=== PATIENT | female | born 1990 | race African-American/Black ===

== ENCOUNTER → 2019-11-11 14:29 | Outpatient (BNVA) | payer SELFPAY | PROVIDERS: PCP Nurse Practitioner; Referring Provider Emergency Medicine; Visit Provider Specialist | DX: G43.011 Migraine without aura, intractable, with status migrainosus (principal); F19.10 Other psychoactive substance abuse, uncomplicated; F17.210 Nicotine dependence, cigarettes, uncomplicated | CPT/HCPCS: 99204; 99214 ==

== ENCOUNTER 2020-02-14 00:19 | Emergency (ER) | payer SELFPAY ==
[2020-02-14] VITALS (8 sets, daily range): BP systolic 105–129; BP diastolic 65–84; PULSE 72–92; RESP 16–18; TEMP 36.2; O2SAT 96–100; BMI 33.9
--- NOTE | 2020-02-14 00:20 | CTR_ITS ---
PROCEDURE INFORMATION: Exam: CT Head Without Contrast Exam date and time: 02/14/2020 12:23 AM Age: 29 years old Clinical indication: Pain; Altered mental status/memory loss and other: Overdose; Headache; Additional info: Orr/ams TECHNIQUE: Imaging protocol: Computed tomography of the head without contrast. Radiation optimization: All CT scans at this facility use at least one of these dose optimization techniques: automated exposure control; mA and/or kV adjustment per patient size (includes targeted exams where dose is matched to clinical indication); or iterative reconstruction. COMPARISON: CT head wo con* [id number] 06/26/2019 7:31 AM RADIATION DOSE METRICS: Total DLP: 876.47 mGy-cm FINDINGS: Brain: No acute intracranial hemorrhage or mass effect. No definite acute infarct by CT. MRI could be more sensitive/specific for detection, as clinically directed. Ventricles: Ventricle size is normal for age. Bones/joints: No definite acute skull fracture. Sinuses: Included paranasal sinuses are essentially clear. Mastoid air cells: No significant acute finding. CT/CT head wo con* [id number] IMPRESSION: 1. No acute intracranial hemorrhage or mass effect. 2. No definite acute infarct by CT, see above. 3. Other findings discussed above. Radiation Dose CTDIVOL = (mGy): DLP = 876.47 (mGy-cm)
--- NOTE | 2020-02-14 00:20 | XR_ITS ---
WS: [id number] PORTABLE CHEST HISTORY: cough COMPARISON: 09/10/2013 Lungs are clear and well expanded. No pleural effusion or pneumothorax. Cardiac size: Normal. Mediastinum/Aorta: Normal mediastinum. No osseous abnormality seen. XR/XR chest 1V portable [id number] IMPRESSION: Unremarkable portable chest.
[2020-02-14 01:15] LABS: ABG PCO2 46.3 mmHg (35-45); ABG PH Result 7.36 (7.35-7.45); Arterial Blood Gas Hematocrit 42.1 % (37-47); Blood Gas Allen Test Pos; Blood Gas Sample Site Radial, right; Blood Gas Sample Type Arterial; Carboxyhemoglobin 2.7 %THgb (0.4-20.1); HGB O2 Sat 94.6 % (95-100); Ionized Calcium Level - ABG 1.2 mmol/L (1.1-1.4); Methemoglobin 0.9 % (0.4-1.5); Oxygen Saturation ABG 98.2; Potassium Level - ABG 3.9 mmol/L (3.5-5.0); Total Hemoglobin 13.7 g/dL (12-16)
[2020-02-14 01:22] LABS: Basophils # 0.1 10^3/uL (0.0-0.1); Basophils % 0.4 %; Eosinophils # 0.2 10^3/uL (0.0-0.8); Eosinophils % 1.4 %; Hematocrit 42.6 % (37.0-47.0); Hemoglobin 13.6 g/dL (11.5-15.3); Lymphocytes # 1.8 10^3/uL (0.8-4.8); Lymphocytes % 14.6 %; Mean Corpuscular HGB Conc 31.9 g/dL (30.0-36.0); Mean Corpuscular Hemoglobin 28.2 pg (28.0-34.0); Mean Corpuscular Volume 88.4 fL (81-99); Mean Platelet Volume 9.9 fL (7.4-10.4); Monocytes # 0.6 10^3/uL (0.2-0.9); Monocytes % 5.1 %; Neutrophils # 9.8 10^3/uL (1.8-7.7); Neutrophils % 78.2 %; Nucleated Red Blood Cells % 0 %; Platelet Count 372 10^3/cmm (130-400); Red Blood Count 4.82 10^6/uL (4.1-5.3); Red Cell Distribution Width 14.6 % (12.1-15.1); White Blood Count 12.5 10^3/uL (4.0-10.0)
--- NOTE | 2020-02-14 01:23 | ED_ITS ---
HPI - Overdose General: Chief Complaint: Overdose Stated Complaint: OD Time Seen by Provider: 02/14/20 00:20 History of Present Illness: HPI Narrative: Glendy is a 29-year-old female who comes in after overdosing on opiates. She states that she injects metham phetamines and opiates but does not normally use opiates. Tonight she did this and was found to not be breathing. She was believed to have bystander CPR and EMS was called. EMS gave her 2 mg of intranasal Narcan with minimal response. They established an IO and gave her 1 mg of intraosseous Narcan with good result. Here the patient has a GCS of 15. The patient states she did this to get high and she did not do this in an effort to hurt or kill herself. EMS reports the same story. Review of Systems General: Reports: other (negative unless marked) Const: Denies: fever, chills, body aches, fatigue, malaise or diaphoresis Eyes: Denies: change in vision or blurry vision ENMT: Denies: throat pain, painful swallowing, hoarseness, ear pain, ear discharge, Change in hearing or nasal discharge Card: Denies: chest pain, palpitations, irregular heart rhythm, syncope, pre- syncope, shortness of breath on exertion or shortness of breath when lying down Resp: Denies: shortness of breath, productive cough, non-productive cough, wheezing, coughing up blood or chest congestion GI: Denies: abdominal pain, nausea, vomiting, vomiting blood, coffee grounds in vomit, diarrhea, constipation, cramping, blood in stool or black tarry stool : Denies: flank pain, painful urination, urinary frequency, urinary urgency, decreased urine ouput, urinary incontinence or blood in urine Musc: Denies: neck pain, back pain, extremity pain, extremity swelling, joint pain, joint swelling, joint warmth or joint stiffness Skin/Breast: Denies: rash, skin tenderness or yellow skin Neuro: Denies: headache, numbness in extremities, weakness in extremities, changes in sensation, lack of coordination, difficulty walking, dizziness, vertigo or confusion Endo: Denies: excessive thirst, tired all the time, cold intolerance, excessive sweating, flushing or hot flashes Wood/Lymph: Denies: easy bruising, easy bleeding, petechiae or enlarged lymph nodes All/Imm: Denies: hives, throat swelling, tongue swelling, facial swelling or acute wheezing PFSH ED PFSH: Medical History Cardiac murmur Post traumatic stress disorder Surgical History History of laparoscopic cholecystectomy History of partial hysterectomy History of tonsillectomy and adenoidectomy History of tubal ligation Family History Other Cancer Diabetes Stroke Denies family history of CAD (coronary artery disease) Social History Smoking and tobacco status: current every day smoker cigarettes Packs smoked per day: 1 Years cigarettes smoked: 16 Alcohol intake: current Alcohol intake frequency: holidays/special occasions on ly Alcohol type: beer and wine Physical Exam Const: COMMON NORMALS: no apparent distress, oriented x3, no limitations, healthy appearing and well nourished EXAM LIMITATIONS: no altered mental status GENERAL APPEARANCE: cooperative, well kempt and well developed ORIENTATION/CONSCIOUSNESS: Yes awake HENMT: COMMON NORMALS: normocephalic, head/scalp atraumatic, hearing grossly normal bilaterally, external ears normal, EAC's normal, external nose normal and moist oral mucous membranes HEAD & SCALP: normal to inspection, normocephalic and atraumatic FACE & SINUS: normal facial exam and face symmetric NOSE: external nose normal and nares normal EXTERNAL EAR: Yes external ears normal EXTERNAL AUDITORY CANAL: EAC's normal MOUTH: oral and palatal mucosa normal and tongue normal Eye: COMMON NORMALS: PERRL, EOMs intact bilaterally, conjunctivae normal and no scleral icterus GENERAL EYE: normal appearance of both eyes and normal light reflex CONJUNCTIVA: Yes conjunctivae normal SCLERA: sclerae normal CORNEA: Yes corneas normal PUPIL: Yes PERRL DIRECT OPHTHALMOSCOPY: Yes normal light reflex Neck/C-Spine: COMMON NORMALS: full ROM, no lymphadenopathy, supple, no meningeal signs and no JVD GENERAL: Yes normal visual inspection and Yes trachea midline CERVICAL SPINE: Yes cervical ROM normal Chest: COMMONS NORMALS: inspection of chest normal and palpation of chest normal Resp: COMMON NORMALS: normal respiratory effort, no retractions, no use of accessory muscles and clear to auscultation bilaterally EFFORT & INSPECTION: Yes able to speak in complete sentences AUSCULTATION: clear to auscultation bilaterally Cardio: COMMON NORMALS: no JVD, regular rate, regular rhythm, S1 normal heart sound, S2 normal heart sound, no gallops, no clicks, no murmurs and no rub JUGULAR VENOUS DISTENTION: no JVD RATE: regular rate RHYTHM: regular rhythm HEART SOUNDS: S1 normal and S2 normal GI: COMMON NORMALS: soft to palpation, non-tender, no hepatosplenomegaly and no masses INSPECTION: Yes normal to inspection PALPATION: Yes soft and Yes no hepatosplenomegaly : COMMON NORMALS: Yes no CVA tenderness BLADDER/KIDNEY EXAM: Yes no CVA tenderness Back/Pelvis: COMMON NORMALS: no CVA tenderness, thoracic and lumbar spine normal to inspection, no thoracic nor lumbar tenderness and thoraco-lumbar ROM normal Extremity: COMMON NORMALS: normal to inspection, full ROM, normal capillary refill, no joint enlargement, no clubbing, cyanosis or edema and no calf te nderness Neuro: COMMON NORMALS: oriented x3, CN's II-XII intact bilaterally, moves all extremities, no focal motor deficits and no sensory deficits noted MENINGEAL SIGNS: Yes no meningeal signs Psych: COMMON NORMALS: mental status grossly normal, thought process normal, cooperative, affect normal, speech normal and activity/motor behavior normal APPEARANCE: Yes well kempt SPEECH: Yes normal speech THOUGHT PROCESS: normal thought process Skin: COMMON NORMALS: no rashes or lesions noted, skin turgor normal, no jaundice, no petechiae and no mottling GENERAL SKIN EXAM: no rashes or lesions noted and turgor normal Course ED course: 0300 -nursing has been unable to establish an IV. Blood has been obtained but the patient continues to just have an intraosseous line. I have discussed with her the need for admission as she has received CPR and should be observed as it is unclear what she injected tonight was. It is possible it was a longer acting opiate and not just fentanyl. The patient has been alert and oriented x3 since arrival and that is unchanged. Because they are unable to establish an IV and I feel she should be admitted I informed the patient we will need to place a central line but she refuses. She understands the risks of leaving AGAINST MEDICAL ADVICE including ultimately or severe permanent disability but she refuses. At this time the patient clearly has the capacity to make that decision she shows no sign of impairment and has asked questions in regards to the process including placing a line as well as admission but after having all these questions answered and thinking over this she refuses and wants to be discharged. After much encouragement by me she does agree to at least allow us to follow-up on the remaining CTs and lab work but ultimately she says she will not stay and wants to be discharged. She adamantly refuses a central line. Vital Signs: Vital signs: Vital Signs Temperature 97.2 F L 02/14/20 00:25 Pulse Rate 74 02/14/20 03:52 Respiratory Rate 16 02/14/20 03:52 Blood Pressure 117/65 02/14/20 03:52 Pulse Oximetry 97 02/14/20 03:52 MDM - Overdose MDM Narrative: Medical decision making narrative: 5178 -the patient is refusing a repeat IV stick to check a troponin but she denies having any chest pain currently. She states that she does not normally use opiates and she used opiates tonight as she believes that is what made her stop breathing. She got Narcan by EMS which has long since worn off and she is remained hemodynamically stable with good blood pressures and a normal pulse oximetry and a normal respiratory rate without any further doses of Narcan or need for supplemental O2. CT scans did not show any evidence of injury. Patient's mentation is good. I have still informed her I think it is better if she stayed but she is refusing. I have made her aware that if she leaves without further observation she is at risk of or severe permanent disability but despite my warnings she refuses. I do think she is likely safe for discharge did not think that there are any long-acting opiates that would cause a further respiratory depression as at this time the Narcan should have worn off so the patient should be okay. The patient will wait here at the hospital in her room until her mother comes to pick her up that is who she is having us call to the pick her up. Patient understands she is welcome to return or she can change her mind while she is waiting here if she would like further observation and care. When asked again the patient does state that she did not do this to hurt herself she only did this to get high. The patient is used multiple drugs over the past several years for the same reasons, to get high. Lab Data: Attestation: I reviewed the patient's lab results. Labs: Lab Results 02/14/20 02/14/20 02/14/20 Range/Units 01:10 01:10 02:56 WBC 12.5 H (4.0-10.0) 10^3/ uL RBC 4.82 (4.1-5.3) 10^6/u L Hgb 13.6 (11.5-15.3) g/dL Hct 42.6 (37.0-47.0) % MCV 88.4 (81-99) fL MCH 28.2 (28.0-34.0) pg MCHC 31.9 (30.0-36.0) g/dL RDW 14.6 (12.1-15.1) % Plt Count 372 (130-400) 10^3/c mm MPV 9.9 (7.4-10.4) fL Neut % (Auto) 78.2 % Lymph % (Auto) 14.6 % [place] % (Auto) 5.1 % Eos % (Auto) 1.4 % Baso % (Auto) 0.4 % Neut # (Auto) 9.8 H (1.8-7.7) 10^3/u L Lymph # (Auto) 1.8 (0.8-4.8) 10^3/u L [place] # (Auto) 0.6 (0.2-0.9) 10^3/u L Eos # (Auto) 0.2 (0.0-0.8) 10^3/u L Baso # (Auto) 0.1 (0.0-0.1) 10^3/u L Nucleated RBC % (a uto) 0 % Nucleated RBCs # 0.0 /100WBC Specimen Type Arterial Sample Site Radial, right ABG pH 7.36 (7.35-7.45) ABG pCO2 46.3 H (35-45) mmHg ABG pO2 102.0 H (80.0-100.0) mmH g ABG HCO3 26.0 (22-26) mmol/L ABG O2 Saturation 98.2 ABG Base Excess 0.0 (-2.0-2.0) mmol/ L Derek Test Pos Hematocrit 42.1 (37-47) % Hgb O2 Saturation 94.6 L (95-100) % Carboxyhemoglobin 2.7 (0.4-20.1) %THgb Methemoglobin 0.9 (0.4-1.5) % Total Hemoglobin 13.7 (12-16) g/dL Sodium 142.0 138 (131-143) mmol/L Potassium 3.9 4.2 (3.5-5.0) mmol/L Glucose 113.0 111 (70-115) mg/dL Ionized Calcium 1.2 (1.1-1.4) mmol/L O2 Delivery Device None FiO2 21.0 % Parts Processor ID [email or web address] Chloride 104 (98-107) mmol/L Carbon Dioxide 22 (22-29) mmol/L Anion Gap 16.2 (5-19) BUN 9 (6-20) mg/dL Creatinine 0.7 (0.5-0.9) mg/dL GFR Calculation 118.9 (90-130) mL/min Calculated Osmolal ity 283 L (285-295) mOsm/k g Calcium 9.6 (8.5-10.5) mg/dL Magnesium 2.3 (1.7-2.3) mg/dL Total Bilirubin 0.2 (0.15-1.2) mg/dL AST 30 (0-32) U/L ALT 47 H (0-33) U/L Alkaline Phosphata se 73 (35-105) IU/L Creatine Kinase 412 H* (26-192) U/L Troponin T Baselin e (0-10) ng/mL Total Protein 7.6 (6.6-8.7) g/dL Albumin 3.9 (3.5-5.2) g/dL Globulin 3.7 (1.3-4.6) g/dL Salicylates < 0.3 L (3-10) mg/dL Urine Opiates Scre en (Negative) ng/mL Acetaminophen < 5.0 L (10-30) ug/mL Ur Barbiturates Sc reen (Negative) ng/mL Phenytoin 0.8 L (10-20) ug/mL Valproic Acid 2.8 L (50-100) mcg/mL Carbamazepine 2.0 L (4.0-12.0) ug/mL Ur Phencyclidine S crn (Negative) ng/mL Ur Amphetamines Sc reen (Negative) ng/mL U Benzodiazepines Scrn (Negative) ng/mL [place] (0.6-1.2) mmol/L Urine Cocaine Scre en (Negative) ng/mL U Marijuana (THC) Screen (Negative) ng/mL Ethyl Alcohol < 10 (0-10) mg/dL 02/14/20 02/14/20 02/14/20 Range/Units 02:56 02:56 03:50 WBC (4.0-10.0) 10^3/ uL RBC (4.1-5.3) 10^6/u L Hgb (11.5-15.3) g/dL Hct (37.0-47.0) % MCV (81-99) fL MCH (28.0-34.0) pg MCHC (30.0-36.0) g/dL RDW (12.1-15.1) % Plt Count (130-400) 10^3/c mm MPV (7.4-10.4) fL Neut % (Auto) % Lymph % (Auto) % [place] % (Auto) % Eos % (Auto) % Baso % (Auto) % Neut # (Auto) (1.8-7.7) 10^3/u L Lymph # (Auto) (0.8-4.8) 10^3/u L [place] # (Auto) (0.2-0.9) 10^3/u L Eos # (Auto) (0.0-0.8) 10^3/u L Baso # (Auto) (0.0-0.1) 10^3/u L Nucleated RBC % (a uto) % Nucleated RBCs # /100WBC Specimen Type Sample Site ABG pH (7.35-7.45) ABG pCO2 (35-45) mmHg ABG pO2 (80.0-100.0) mmH g ABG HCO3 (22-26) mmol/L ABG O2 Saturation ABG Base Excess (-2.0-2.0) mmol/ L Derek Test Hematocrit (37-47) % Hgb O2 Saturation (95-100) % Carboxyhemoglobin (0.4-20.1) %THgb Methemoglobin (0.4-1.5) % Total Hemoglobin (12-16) g/dL Sodium (131-143) mmol/L Potassium (3.5-5.0) mmol/L Glucose (70-115) mg/dL Ionized Calcium (1.1-1.4) mmol/L O2 Delivery Device FiO2 % Parts Processor ID Chloride (98-107) mmol/L Carbon Dioxide (22-29) mmol/L Anion Gap (5-19) BUN (6-20) mg/dL Creatinine (0.5-0.9) mg/dL GFR Calculation (90-130) mL/min Calculated Osmolal ity (285-295) mOsm/k g Calcium (8.5-10.5) mg/dL Magnesium (1.7-2.3) mg/dL Total Bilirubin (0.15-1.2) mg/dL AST (0-32) U/L ALT (0-33) U/L Alkaline Phosphata se (35-105) IU/L Creatine Kinase (26-192) U/L Troponin T Baselin e 16 H (0-10) ng/mL Total Protein (6.6-8.7) g/dL Albumin (3.5-5.2) g/dL Globulin (1.3-4.6) g/dL Salicylates (3-10) mg/dL Urine Opiates Scre en Negative (Negative) ng/mL Acetaminophen (10-30) ug/mL Ur Barbiturates Sc reen Negative (Negative) ng/mL Phenytoin (10-20) ug/mL Valproic Acid (50-100) mcg/mL Carbamazepine (4.0-12.0) ug/mL Ur Phencyclidine S crn Negative (Negative) ng/mL Ur Amphetamines Sc reen Positive H (Negative) ng/mL U Benzodiazepines Scrn Positive H (Negative) ng/mL [place] 0.1 L (0.6-1.2) mmol/L Urine Cocaine Scre en Negative (Negative) ng/mL U Marijuana (THC) Screen Negative (Negative) ng/mL Ethyl Alcohol (0-10) mg/dL Imaging Data^: CT Head: Radiologist's impression: [address] [address] [address] Scan Report Signed Patient: Leta Puentes Unit #: [id number] : 09/28/1973 Age/Sex: 46 / F ADM Date: 02/13/20 Loc: ER Room/Bed: Attending Dr: Ordering Provider/Ordering MD: Maxine Brady DO Date of Service: 02/13/20 Procedure(s): CT head wo con* [id number] Accession Number(s): [id number] Report Number: [id number] PROCEDURE INFORMATION: Exam: CT Head Without Contrast Exam date and time: 02/13/2020 9:06 PM Age: 46 years old Clinical indication: Pain; Altered mental status/memory loss; Headache; Additional info: Orr/ams TECHNIQUE: Imaging protocol: Computed tomography of the head without contrast. Radiation optimization: All CT scans at this facility use at least one of these dose optimization techniques: automated exposure control; mA and/or kV adjustment per patient size (includes targeted exams where dose is matched to clinical indication); or iterative reconstruction. COMPARISON: CT head wo con* [id number] 12/31/2019 9:57 PM RADIATION DOSE METRICS: Total DLP: 840.72 mGy-cm FINDINGS: Brain: No acute intracranial hemorrhage or mass effect. There is decreased attenuation in the periventricular white matter, likely from microvascular disease. There are old lacunar infarcts in the basal ganglia/internal capsule regions bilaterally, similar to prior exam. Additional old infarcts in the amy bilaterally, larger on the left. No definite acute infarct by CT. MRI could be more sensitive/specific for detection, as clinically directed. Ventricles: Ventricle size is normal for age. Bones/joints: No definite acute skull fracture. Sinuses: Included paranasal sinuses are essentially clear. Mastoid air cells: No significant acute finding. CT/CT head wo con* [id number] IMPRESSION: 1. No acute intracranial hemorrhage or mass effect. 2. Changes of microvascular disease, and old lacunar infarcts. 3. No definite acute infarct by CT, see above. 4. Other findings discussed above. Radiation Dose CTDIVOL = (mGy): DLP = 840.72 (mGy-cm) Dictated By: Sarabjit Abarca MD Signed By: Sarabjit Abarca MD Signed Date/Time: 02/14/209 DD/ 000 CXR: My impression: No acute cardiopulmonary findings. CT Chest/ABD/Pelvis : Radiologist's impression: [address] [place] [address] CT Scan Report Signed Patient: Glendy Gardner Unit #: [id number] : 1990 Age/Sex: 29 / F ADM Date: 02/14/20 Loc: ER Room/Bed: Attending Dr: Ordering Provider/Ordering MD: Maxine Brady DO Date of Service: 02/14/20 Procedure(s): CT chest abd pel wo con Accession Number(s): [id number] Report Number: [id number] PROCEDURE INFORMATION: Exam: CT Chest Without Contrast Exam date and time: 02/14/2020 3:03 AM Age: 29 years old Clinical indication: Abdominal pain; Generalized; Chest pain; Prior surgery; Surgery type: Hysterectomy, cholecystectomy, btl TECHNIQUE: Imaging protocol: Computed tomography of the chest without contrast. Radiation optimization: All CT scans at this facility use at least one of these dose optimization techniques: automated exposure control; mA and/or kV adjustment per patient size (includes targeted exams where dose is matched to clinical indication); or iterative reconstruction. COMPARISON: No relevant prior studies available. RADIATION DOSE METRICS: Total DLP: 2497.16 mGy-cm FINDINGS: Lungs: Very mild probable atelectasis in the posterior lower lungs. Lungs otherwise appear essentially clear. Pleural space: No pleural fluid. Heart: No significant pericardial effusion. Mediastinum: No evidence for pneumomediastinum or pneumothorax. Aorta: No evidence of focal thoracic aortic aneurysm. Lymph nodes: No significant hilar or mediastinal lymphadenopathy. Bones/joints: No significant acute abnormality. Soft tissues: No significant acute abnormality. IMPRESSION: 1. Very mild probable atelectasis in the posterior lower lungs. 2. No pleural fluid. 3. Other findings discussed above. PROCEDURE INFORMATION: Exam: CT Abdomen And Pelvis Without Contrast Exam date and time: 02/14/2020 3:03 AM Age: 29 years old Clinical indication: Abdominal pain; Generalized; Chest pain; Prior surgery; Surgery type: Hysterectomy, cholecystectomy, btl TECHNIQUE: Imaging protocol: Computed tomography of the abdomen and pelvis without contrast. Radiation optimization: All CT scans at this facility use at least one of these dose optimization techniques: automated exposure control; mA and/or kV adjustment per patient size (includes targeted exams where dose is matched to clinical indication); or iterative reconstruction. COMPARISON: No relevant prior studies available. RADIATION DOSE METRICS: Total DLP: 2497.16 mGy-cm FINDINGS: Liver: Unremarkable. Gallbladder and bile ducts: Prior cholecystectomy, no significant biliary tree dilation. Pancreas: Unremarkable. Spleen: Unremarkable. Adrenals: Unremarkable. Kidneys and ureters: No hydronephrosis of either kidney. No visible renal or ureteral calculus. No perinephric fluid. Stomach and bowel: There are no CT findings to strongly suggest diverticulitis. Appendix: The appendix is visualized and appears normal. Intraperitoneal space: No free air, ascites, or bowel distention. Vasculature: No evidence for abdominal aortic aneurysm. Lymph nodes: No retroperitoneal adenopathy. Bladder: Unremarkable as visualized. Reproductive: Prior hysterectomy. No definite ovarian/adnexal cyst or mass by CT. Bones/joints: No significant acute finding. Soft tissues: Very small umbilical hernia, containing only fat. CT/CT chest abd pel wo con IMPRESSION: 1. Normal appendix. 2. No free air or bowel distention. 3. No hydronephrosis of either kidney. No visible renal or ureteral calculus. 4. Other findings discussed above. Radiation Dose CTDIVOL = (mGy): DLP = 2497.16 2497.16 (mGy-cm) Dictated By: Sarabjit Abarca MD Signed By: Sarabjit Abarca MD Signed Date/Time: 02/14/200 DD/ EKG Data^: EKG 1: Attestation: I personally reviewed and interpreted this EKG as follows: EKG interpretation date: 02/14/20 EKG interpretation time: 01:17 Interpretation: Normal sinus rhythm at 90 beats a minute, incomplete right bundle branch block, no other acute ST or T wave changes. EKG 2: Attestation: I personally reviewed and interpreted this EKG as follows: EKG interpretation date: 02/14/20 EKG interpretation time: 03:35 Interpretation: Sinus rhythm at 73 beats a minute, left axis deviation, nonspecific ST and T wave changes. Discharge Plan Discharge Patient Disposition: Left Against Medical Advice Clinical Impression: Polysubstance abuse Drug overdose Qualifiers: Encounter type: initial encounter Injury intent: accidental or unintentional Qualified Code(s): T50.901A - Poisoning by unspecified drugs, medicaments and biological substances, accidental (unintentional), initial encounter Condition: Stable Prescriptions: No Action ibuprofen 200 mg capsule 400 mg PO Q8H RF: 0 venlafaxine [Effexor XR] 75 mg capsule,extended release 24hr 75 mg PO QAM Qty: 7 RF: 0 venlafaxine [Effexor XR] 150 mg capsule,extended release 24hr 150 mg PO QAM Qty: 30 RF: 4 Discharge Orders: Discharge Order (Routine); Ordered 02/14/20 Ordered By: Maxine Brady Referrals: Travis Benton MD [Physician] - 1-3 days Discharge Diet: Advance as tolerated Discharge Activity: Increase activity as tolerated Patient Instructions: Benzodiazepine Abuse (ED), Narcotic Abuse (ED), Methamphetamine Abuse (ED), Polysubstance Abuse (ED) Activity Restrictions/Additional Instructions: You're leaving AGAINST MEDICAL ADVICE and are at risk for or severe permanent disability by doing so. You are more than welcome to return at any time for recheck and for further evaluation and care suture change you change your mind. You are free to return at any time should you change your mind or your symptoms change and you want further care. Be certain to follow-up with your doctor and do not use any drugs at all as you could have the same reaction as you had with this episode. God bless you and if you ever need help the ER is always here for you. Stand Alone Forms: Against Medical Advice Coding Level of Care Code ED Information Systems Project Manager for [employer] Exam Comprehensive
--- NOTE | 2020-02-14 02:21 | ECG_ITS ---
Measurements Intervals [place] Rate: 73 P: -5 [place]: 154 QRS: -41 QRSD: 104 T: -31 QT: 372 QTc: 412 SINUS RHYTHM WITH OCCASIONAL SUPRAVENTRICULAR PREMATURE COMPLEXES LEFT AXIS DEVIATION [QRS AXIS < -30] Compared to ECG 01/28/2019 08:47:34 Left-axis deviation now present Electronically Signed On 02-14-2020 15:52:28 CDT by Laura Leblanc M.D. [email or web address]
--- NOTE | 2020-02-14 03:03 | CTR_ITS ---
PROCEDURE INFORMATION: Exam: CT Chest Without Contrast Exam date and time: 02/14/2020 3:03 AM Age: 29 years old Clinical indication: Abdominal pain; Generalized; Chest pain; Prior surgery; Surgery type: Hysterectomy, cholecystectomy, btl TECHNIQUE: Imaging protocol: Computed tomography of the chest without contrast. Radiation optimization: All CT scans at this facility use at least one of these dose optimization techniques: automated exposure control; mA and/or kV adjustment per patient size (includes targeted exams where dose is matched to clinical indication); or iterative reconstruction. COMPARISON: No relevant prior studies available. RADIATION DOSE METRICS: Total DLP: 2497.16 mGy-cm FINDINGS: Lungs: Very mild probable atelectasis in the posterior lower lungs. Lungs otherwise appear essentially clear. Pleural space: No pleural fluid. Heart: No significant pericardial effusion. Mediastinum: No evidence for pneumomediastinum or pneumothorax. Aorta: No evidence of focal thoracic aortic aneurysm. Lymph nodes: No significant hilar or mediastinal lymphadenopathy. Bones/joints: No significant acute abnormality. Soft tissues: No significant acute abnormality. IMPRESSION: 1. Very mild probable atelectasis in the posterior lower lungs. 2. No pleural fluid. 3. Other findings discussed above. PROCEDURE INFORMATION: Exam: CT Abdomen And Pelvis Without Contrast Exam date and time: 02/14/2020 3:03 AM Age: 29 years old Clinical indication: Abdominal pain; Generalized; Chest pain; Prior surgery; Surgery type: Hysterectomy, cholecystectomy, btl TECHNIQUE: Imaging protocol: Computed tomography of the abdomen and pelvis without contrast. Radiation optimization: All CT scans at this facility use at least one of these dose optimization techniques: automated exposure control; mA and/or kV adjustment per patient size (includes targeted exams where dose is matched to clinical indication); or iterative reconstruction. COMPARISON: No relevant prior studies available. RADIATION DOSE METRICS: Total DLP: 2497.16 mGy-cm FINDINGS: Liver: Unremarkable. Gallbladder and bile ducts: Prior cholecystectomy, no significant biliary tree dilation. Pancreas: Unremarkable. Spleen: Unremarkable. Adrenals: Unremarkable. Kidneys and ureters: No hydronephrosis of either kidney. No visible renal or ureteral calculus. No perinephric fluid. Stomach and bowel: There are no CT findings to strongly suggest diverticulitis. Appendix: The appendix is visualized and appears normal. Intraperitoneal space: No free air, ascites, or bowel distention. Vasculature: No evidence for abdominal aortic aneurysm. Lymph nodes: No retroperitoneal adenopathy. Bladder: Unremarkable as visualized. Reproductive: Prior hysterectomy. No definite ovarian/adnexal cyst or mass by CT. Bones/joints: No significant acute finding. Soft tissues: Very small umbilical hernia, containing only fat. CT/CT chest abd pel wo con IMPRESSION: 1. Normal appendix. 2. No free air or bowel distention. 3. No hydronephrosis of either kidney. No visible renal or ureteral calculus. 4. Other findings discussed above. Radiation Dose CTDIVOL = (mGy): DLP = 2497.16~2497.16 (mGy-cm)
--- NOTE | 2020-02-14 03:03 | PC.NURSE ---
Went in with Dr. Brady to do a consent for Central Line placement after several failed attempts at IV access. Patient stated that she did not want a central line and stated to Dr. Brady to check everything that he can without a central line and when her mom gets here she would like to go home rather than be admitted to the hospital.
--- NOTE | 2020-02-14 03:08 | PC.NURSE ---
Pt refuses urine catheter and refuses central line at this time.
[2020-02-14 03:18] LABS: Alanine Aminotransferase 47 U/L (0-33); Albumin Level 3.9 g/dL (3.5-5.2); Alkaline Phosphatase 73 IU/L (35-105); Anion Gap 16.2 (5-19); Aspartate Amino Transferase 30 U/L (0-32); Blood Urea Nitrogen 9 mg/dL (6-20); Calcium 9.6 mg/dL (8.5-10.5); Carbon Dioxide 22 mmol/L (22-29); Chloride 104 mmol/L (98-107); Globulin 3.7 g/dL (1.3-4.6); Glomerular Filtration Rate 118.9 mL/min (90-130); Glucose 111 mg/dL (65-115); Magnesium 2.3 mg/dL (1.7-2.3); Osmolality Calculated 283 mOsm/kg (285-295); Phenytoin Dilantin 0.8 ug/mL (10-20); Potassium 4.2 mmol/L (3.5-5.1); Sodium 138 mmol/L (136-145); Total Bilirubin 0.2 mg/dL (0.15-1.2); Total Protein 7.6 g/dL (6.6-8.7); Valproic Acid Level 2.8 mcg/mL (50-100)
[2020-02-14 03:19] LABS: Troponin(5th) Baseline 16 ng/mL (0-10)
[2020-02-14 03:24] LABS: Acetaminophen < 5.0 ug/mL (10-30); Alcohol Level < 10 mg/dL (0-10); Salicylate < 0.3 mg/dL (3-10)
[2020-02-14 03:25] LABS: Creatine Phosphokinase 412 U/L (26-192)
[2020-02-14 03:27] LABS: Lithium 0.1 mmol/L (0.6-1.2)
--- NOTE | 2020-02-14 04:07 | PC.NURSE ---
Pt refuses second troponin draw.
[2020-02-14 04:20] LABS: Amphetamines Screen Urine Positive (Negative); Barbiturates Screen Urine Negative (Negative); Benzodiazepines Screen Urine Positive (Negative); Cocaine Screen Urine Negative (Negative); Opiate Screen Urine Negative (Negative); PCP Screen Urine Negative (Negative); THC Screen Urine Negative (Negative)
--- NOTE | 2020-02-14 06:21 | ECG_ITS ---
Measurements Intervals [place] Rate: 90 P: 56 [place]: 190 QRS: 25 QRSD: 100 T: 43 QT: 356 QTc: 436 SINUS RHYTHM Compared to ECG 01/28/2019 08:47:34 No significant changes Electronically Signed On 02-14-2020 15:54:53 CDT by Laura Leblanc M.D. [email or web address]
== END 2020-02-14 06:43 | disposition left against medical advice (07) ==
PROVIDERS: Emergency Provider Emergency Medicine
DX: T65.91XA Toxic effect of unspecified substance, accidental (unintentional), initial encounter (principal); F19.10 Other psychoactive substance abuse, uncomplicated; Z53.21 Procedure and treatment not carried out due to patient leaving prior to being seen by health care provider; F17.210 Nicotine dependence, cigarettes, uncomplicated
CPT/HCPCS: 12345; 36415; 36600; 70450; 71045; 71250; 74176; 80051; 80053; 80156; 80164; 80178; 80185; 80306; 80307; 82550; 82810; 83735; 83986; 84484; 85025; 93005; 96361; 96374; 99283; 99284

== ENCOUNTER 2020-10-03 23:41 | Emergency (ER) | payer SELFPAY ==
[2020-10-03 23:46] VITALS: BP 151/87; PULSE 115; RESP 20; TEMP 36.6; O2SAT 100; BMI 39.1
--- NOTE | 2020-10-03 23:49 | ED_ITS ---
HPI - Nausea/Vomiting/Diarrhea General: Chief complaint: Nausea/Vomiting/Diarrhea Stated complaint: N/V Time Seen by Provider: 10/03/20 23:44 History of Present Illness: HPI Narrative: Patient comes in complain about nausea and vomiting last couple days. Denies any fever or other related problems. Has no diarrhea. No cough congestion lost taste or smell. Is a daily pot smoker. 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 Denies abdominal pain. MD elicited complaint: nausea and vomiting Pertinent past history: cyclical vomiting Onset (ago): day(s) Associated nausea: Yes Associated abdominal pain: No Associated symtoms: Reports no associated symptoms and nausea; Denies anxiety, change in vision, chest pain or headache(s) Review of Systems Const: Denies: fever(s), chills or body aches Eyes: Denies: change in vision or blurry vision ENMT: Denies: throat pain or nasal congestion Card: Denies: chest pain or dyspnea on exertion Resp: Denies: dyspnea, productive cough or non-productive cough GI: Reports: nausea and vomiting; Denies: abdominal pain Musc: Denies: extremity pain Skin/Breast: Denies: rash Neuro: Denies: headache(s) Psych: Denies: anxiety or depression Wood/Lymph: Denies: easy bruising PFSH ED PFSH: Medical History (Updated 08/19/20 @ 09:41 by Flash Radford MD) Cardiac murmur External otitis of right ear Left otitis media Morbid obesity with BMI of 40.0-44.9, adult Post traumatic stress disorder URI (upper respiratory infection) Surgical History History of laparoscopic cholecystectomy History of partial hysterectomy History of tonsillectomy and adenoidectomy History of tubal ligation Family History Other Cancer Diabetes Stroke Denies family history of CAD (coronary artery disease) Social History Smoking and tobacco status: current every day smoker cigarettes Packs smoked per day: 1 Years cigarettes smoked: 16 Alcohol intake: current Alcohol intake frequency: holidays/special occasions only Alcohol type: beer and wine Physical Exam Const: COMMON NORMALS: no acute distress, average body habitus and patient oriented x3 HENMT: COMMON NORMALS: normocephalic HEAD & SCALP: normal to inspection and normocephalic FACE & SINUS: normal facial exam Eye: COMMON NORMALS: conjunctivae normal GENERAL EYE: appearance normal, both eyes and all related structures CONJUNCTIVA: Yes conjunctivae normal Neck/C-Spine: COMMON NORMALS: no JVD Chest: COMMONS NORMALS: normal inspection of the chest Resp: COMMON NORMALS: normal respiratory effort and clear to auscultation bilaterally AUSCULTATION: clear to auscultation bilaterally Cardio: COMMON NORMALS: no JVD and regular rhythm RATE: tachycardic RHYTHM: regular rhythm GI: COMMON NORMALS: Normal to inspection, nondistended, normoactive bowel sounds present Extremity: COMMON NORMALS: normal to inspection and full ROM Neuro: COMMON NORMALS: patient oriented x3 Course Vital Signs: Vital signs: Vital Signs Temperature 97.8 F 10/03/20 23:46 Pulse Rate 115 H 10/03/20 23:46 Respiratory Rate 20 H 10/03/20 23:46 Blood Pressure 151/87 10/03/20 23:46 Pulse Oximetry 100 10/03/20 23:46 MDM - Nausea/Vomiting/Diarrhea MDM Narrative: Medical decision making narrative: Patient left before any test could be completed Discharge Plan Discharge Patient Disposition: Left Without Being Seen Coding Level of Care Code ED It [employer] And Assurance Manager for [facility] F[facility] Exam Comprehensive
== END 2020-10-03 23:50 | disposition left against medical advice (07) ==
LOC: ER 23:50
PROVIDERS: Emergency Provider Nurse Practitioner Family
DX: R11.2 Nausea with vomiting, unspecified (principal); Z53.21 Procedure and treatment not carried out due to patient leaving prior to being seen by health care provider; F17.210 Nicotine dependence, cigarettes, uncomplicated
CPT/HCPCS: 12345; 99281

== ENCOUNTER 2020-10-11 17:29 | Emergency (ER) | payer SELFPAY ==
[2020-10-11 17:44] VITALS: BP 146/73; PULSE 88; RESP 14; TEMP 36.5; O2SAT 98; BMI 38.5
--- NOTE | 2020-10-11 17:51 | ED_ITS ---
HPI - Female Genitourinary General: Chief complaint: Abdominal Pain Stated complaint: BLOOD IN URINE, SENT FROM Time Seen by Provider: 10/11/20 17:48 History of Present Illness: HPI Narrative: Patient is a 30-year-old female comes to the ED with right flank pain blood in her urine. Patient was seen at urgent care earlier today and was sent over here to the ED to evaluate for possible kidney stone. Patient says she has had some right flank pain urine fr equency for the past 2 days. Patient also has had some thick white vaginal discharge, but no vaginal bleeding. She denies any vaginal lesions or sores. Denies dysuria. Patient does want to be tested for gonorrhea and chlamydia today. Past surgical history of a hysterectomy. She has had unprotected sex with male partner and is unsure of their history. Patient says she does not want any HIV testing. Denies fever, nausea/vomiting, decreased appetite, diarrhea or constipation. Associated symptoms: Reports vaginal discharge (minimal thick white discharge); Deny abdominal pain, headache(s) or nausea Review of Systems Const: Denies: fever(s), chills or fatigue Eyes: Denies: change in vision or eye discomfort ENMT: Denies: throat pain, odynophagia, nasal discharge or nasal congestion Card: Denies: chest pain, palpitations, edema, swelling of feet/ankles, dyspnea on exertion or orthopnea Resp: Denies: dyspnea, productive cough or non-productive cough GI: Denies: abdominal pain, nausea, vomiting, diarrhea, constipation or hematochezia : Reports: flank pain (right), urinary frequency (increased) and vaginal discharge (minimal thick white discharge); Denies: dysuria or hematuria Musc: Denies: neck pain, back pain or extremity swelling Skin/Breast: Denies: rash or new lesions Neuro: Denies: headache(s), numbness in extremities or weakness in extremities PFS ED PFSH: Medical History Cardiac murmur External otitis of right ear Left otitis media Morbid obesity with BMI of 40.0-44.9, adult Post traumatic stress disorder URI (upper respiratory infection) Surgical History History of laparoscopic cholecystectomy History of partial hysterectomy History of tonsillectomy and adenoidectomy History of tubal ligation Family History Other Cancer Diabetes Stroke Denies family history of CAD (coronary artery disease) Social History Smoking and tobacco status: current every day smoker cigarettes Packs smoked per day: 1 Years cigarettes smoked: 16 Alcohol intake: current Alcohol intake frequency: holidays/special occasions only Alcohol type: beer and wine Physical Exam Const: COMMON NORMALS: no acute distress, patient oriented x3 and alert GENERAL APPEARANCE: cooperative and comfortable NUTRITIONAL APPEARANCE: overweight HENMT: COMMON NORMALS: normocephalic HEAD & SCALP: normocephalic MOUTH: Normal oral and palatal mucosa present THROAT: posterior oropharynx normal and uvula midline Eye: COMMON NORMALS: Equal, round and reactive pupils present PUPIL: Yes Equal, round and reactive pupils present Neck/C-Spine: COMMON NORMALS: supple GENERAL: Yes normal visual inspection Resp: COMMON NORMALS: normal respiratory effort, No retractions, No use of accessory muscles and clear to auscultation bilaterally AUSCULTATION: clear to auscultation bilaterally Cardio: COMMON NORMALS: regular rate, regular rhythm, S1 normal heart sound present, S2 normal heart sound present, No gallops present (Cardio), No clicks present (Cardio), No murmurs present (Cardio) and Peripheral pulses 2+ throughout RATE: regular rate RHYTHM: regular rhythm HEART SOUNDS: S1 normal heart sound present and S2 normal heart sound present PERIPHERAL PULSES: Peripheral pulses 2+ throughout GI: COMMON NORMALS: Normal to inspection, nondistended, normoactive bowel sounds present, Soft to palpation and no masses PALPATION: Yes Soft to palpation, Yes Tenderness to palpation present (GI) (Mild tenderness across lower abdomen bilaterally.) Details: LLQ and RLQ (Mild tenderness in right lower quadrant palpating over bladder.) and Yes Bladder palpation abnormal : BLADDER/KIDNEY EXAM: Yes Bladder palpation abnormal Bladder abnormal details: tender and Yes CVA tenderness on the right Extremity: COMMON NORMALS: normal to inspection Neuro: COMMON NORMALS: patient oriented x3 and moves all extremities SENSORIUM/ORIENTATION: Yes alert Skin: GENERAL SKIN EXAM: dry skin Course Vital Signs: Vital signs: Vital Signs Temperature 97.7 F 10/11/20 17:44 Pulse Rate 89 10/11/20 20:07 Respiratory Rate 16 10/11/20 20:07 Blood Pressure 146/73 10/11/20 17:44 Pulse Oximetry 98 10/11/20 20:07 MDM - Female MDM Narrative: Medical decision making narrative: Patient is a 30-year-old female who was sent over here to the ED by urgent care to check for kidney stones. Patient had blood in her urine at urgent care. Patient also concerned about checking for STDs. CBC, CMP were unremarkable. UA showed a little bit of blood and white blood cells, but no indication of UTI. Gonorrhea and Chlamydia panel pending. CT of the abdomen showed no kidney stones seen and no other acute findings. Patient diagnosed with possible exposure to STD and abdominal pain in the lower abdomen bilaterally. Patient was given a dose of Rocephin and azithromycin while here in the ED. She was also sent home with a prescription for Flagyl. She was told to follow-up with her PCP in 7 to 10 days for reevaluation. Return to ED precautions given. Patient understood and agreed with plan. Lab Data: Attestation: I reviewed the patient's lab results. Labs: Lab Results 10/11/20 10/11/20 10/11/20 Range/Units 18:14 18:14 18:14 WBC 7.4 (4.0-10.0) 10^3/ uL RBC 4.42 (4.1-5.3) 10^6/u L Hgb 12.5 (11.5-15.3) g/dL Hct 39.4 (37.0-47.0) % MCV 89.1 (81-99) fL MCH 28.3 (28.0-34.0) pg MCHC 31.7 (30.0-36.0) g/dL RDW 15.2 H (12.1-15.1) % Plt Count 461 H (130-400) 10^3/c mm MPV 9.4 (7.4-10.4) fL Neut % (Auto) 61.1 % Lymph % (Auto) 29.3 % [place] % (Auto) 4.7 % Eos % (Auto) 4.1 % Baso % (Auto) 0.7 % Neut # (Auto) 4.52 (1.8-7.7) 10^3/u L Lymph # (Auto) 2.2 (0.8-4.8) 10^3/u L [place] # (Auto) 0.4 (0.2-0.9) 10^3/u L Eos # (Auto) 0.3 (0.0-0.8) 10^3/u L Baso # (Auto) 0.1 (0.0-0.1) 10^3/u L Nucleated RBC % (a uto) 0 % Nucleated RBCs # 0.0 /100WBC Sodium 139 (136-145) mmol/L Potassium 4.1 (3.5-5.1) mmol/L Chloride 102 (98-107) mmol/L Carbon Dioxide 28 (22-29) mmol/L Anion Gap 13.1 (5-19) BUN 10 (6-20) mg/dL Creatinine 0.7 (0.5-0.9) mg/dL GFR Calculation 118.1 (90-130) mL/min Glucose 86 (65-115) mg/dL Calculated Osmolal ity 286 (285-295) mOsm/k g Calcium 9.3 (8.5-10.5) mg/dL Total Bilirubin 0.2 (0.15-1.2) mg/dL AST 27 (0-32) U/L ALT 40 H (0-33) U/L Alkaline Phosphata se 71 (35-105) IU/L Total Protein 7.3 (6.6-8.7) g/dL Albumin 4.0 (3.5-5.2) g/dL Globulin 3.3 (1.3-4.6) g/dL HCG, Qual Negative (Negative) Urine Color (Yellow) Urine Appearance (CLEAR) Urine pH (5-7) Ur Specific Gravit y (1.005-1.030) Urine Protein (Negative) Urine Glucose (UA) (Normal) Urine Ketones (Negative) Urine Blood (Negative) Urine Nitrate (Negative) Urine Bilirubin (Negative) Urine Urobilinogen (Negative) mg/dL Ur Leukocyte [place] ase (Negative) Urine RBC (0-2) /hpf Urine WBC (0-5) /hpf Ur Squamous Epith Cells (0-5) /hpf Amorphous Sediment Urine Bacteria (NONE) /hpf 12//20 Range/Units 18:14 WBC (4.0-10.0) 10^3/ uL RBC (4.1-5.3) 10^6/u L Hgb (11.5-15.3) g/dL Hct (37.0-47.0) % MCV (81-99) fL MCH (28.0-34.0) pg MCHC (30.0-36.0) g/dL RDW (12.1-15.1) % Plt Count (130-400) 10^3/c mm MPV (7.4-10.4) fL Neut % (Auto) % Lymph % (Auto) % [place] % (Auto) % Eos % (Auto) % Baso % (Auto) % Neut # (Auto) (1.8-7.7) 10^3/u L Lymph # (Auto) (0.8-4.8) 10^3/u L [place] # (Auto) (0.2-0.9) 10^3/u L Eos # (Auto) (0.0-0.8) 10^3/u L Baso # (Auto) (0.0-0.1) 10^3/u L Nucleated RBC % (a uto) % Nucleated RBCs # /100WBC Sodium (136-145) mmol/L Potassium (3.5-5.1) mmol/L Chloride (98-107) mmol/L Carbon Dioxide (22-29) mmol/L Anion Gap (5-19) BUN (6-20) mg/dL Creatinine (0.5-0.9) mg/dL GFR Calculation (90-130) mL/min Glucose (65-115) mg/dL Calculated Osmolal ity (285-295) mOsm/k g Calcium (8.5-10.5) mg/dL Total Bilirubin (0.15-1.2) mg/dL AST (0-32) U/L ALT (0-33) U/L Alkaline Phosphata se (35-105) IU/L Total Protein (6.6-8.7) g/dL Albumin (3.5-5.2) g/dL Globulin (1.3-4.6) g/dL HCG, Qual (Negative) Urine Color Yellow (Yellow) Urine Appearance Sl hazy (CLEAR) Urine pH 6.5 (5-7) Ur Specific Gravit y 1.015 (1.005-1.030) Urine Protein Neg (Negative) Urine Glucose (UA) Norm (Normal) Urine Ketones Negative (Negative) Urine Blood Neg (Negative) Urine Nitrate Negative (Negative) Urine Bilirubin Neg (Negative) Urine Urobilinogen Norm (Negative) mg/dL Ur Leukocyte [place] a[place] Negative (Negative) Urine RBC 0-4 H (0-2) /hpf Urine WBC 0-4 H (0-5) /hpf Ur Squamous Epith Cells 10-15 H (0-5) /hpf Amorphous Sediment Not Reportable Urine Bacteria Trace (NONE) /hpf Imaging Data: CT Abd/Pel: Attestation: I personally reviewed and interpreted this imaging study as follows: Radiologist's impression: [id number] [address] [address] Scan Report Signed Patient: Glendy Gardner Unit #: [id number] : 1990 Age/Sex: 30 / F ADM Date: 10/11/20 Loc: ER Room/Bed: Attending Dr: Ordering Provider/Ordering MD: Antonio Larsen Date of Service: 10/11/20 Procedure(s): CT kidney stone [id number] Accession Number(s): [id number] Report Number: [id number] PROCEDURE INFORMATION: Exam: CT Abdomen And Pelvis Without Contrast Exam date and time: 10/11/2020 6:36 PM Age: 30 years old Clinical indication: Prior surgery; Surgery date: 6+ months; Surgery type: Gb, hyst; Patient HX: Gross hematuria; Additional info: Right flank pain TECHNIQUE: Imaging protocol: Computed tomography of the abdomen and pelvis without contrast. Radiation optimization: All CT scans at this facility use at least one of these dose optimization techniques: automated exposure control; mA and/or kV adjustment per patient size (includes targeted exams where dose is matched to clinical indication); or iterative reconstruction. COMPARISON: CT chest abd pel wo con 02/14/2020 3:17 AM RADIATION DOSE METRICS: Total DLP (mGy-cm): 1804.54 FINDINGS: Liver: Normal. No mass. Gallbladder and bile ducts: Normal. No calcified stones. No ductal dilation. Pancreas: Normal. No ductal dilation. Spleen: Normal. No splenomegaly. Adrenal glands: Normal. No mass. Kidneys and ureters: Normal. No hydronephrosis. Stomach and bowel: Unremarkable. No obstruction. No mucosal thickening. Appendix: The appendix is visible and is normal. Intraperitoneal space: Mild pelvic ascites. No free peritoneal air. Vasculature: Unremarkable. No abdominal aortic aneurysm. Lymph nodes: Multiple small retroperitoneal lymph nodes are most likely reactive. No enlarged lymph nodes. Urinary bladder: Unremarkable as visualized. Reproductive: The uterus is absent. Small ovaries. Bones/joints: Unremarkable. No acute fracture. Soft tissues: Unremarkable. CT/CT kidney stone [id number] IMPRESSION: 1. No acute abnormality identified in the abdomen or pelvis. 2. Mild nonspecific pelvic ascites. Radiation Dose CTDIVOL = (mGy): DLP = 1804.54 (mGy-cm) Dictated By: Manpreet Lagunas Signed By: Manpreet Lagunas Signed Date/Time: 10/11/201906 DD/ 05 Discharge Plan Discharge Patient Disposition: Home Clinical Impression: Possible exposure to STD Abdominal pain Qualifiers: Abdominal location: lower abdomen, unspecified Qualified Code(s): R10.30 - Lower abdominal pain, unspecified Condition: Stable Prescriptions: New metronidazole 500 mg tablet 500 mg PO BID 7 Days Qty: 14 RF: 0 Discharge Orders: Discharge ED (Routine); Ordered 10/11/20 Ordered By: Antonio Larsen Discharge Diet: Regular Discharge Activity: Resume usual activity Patient Instructions: Sexually Transmitted Diseases (ED), Abdominal Pain (ED) Activity Restrictions/Additional Instructions: Follow-up with medical provider as directed in 7 to 10 days for reevaluation. Take medications as prescribed. To the ED you were prophylactically treated for gonorrhea and chlamydia with Rocephin and azithromycin. Gonorrhea and Chlamydia lab test pending. Return to the ER or your medical provider if condition worsens. Please read and understand discharge instructions. If any questions, please ask. Coding Level of Care Code ED [employer] Lab[employer] for [facility] Fwd Exam Comprehensive
[2020-10-11 18:20] LABS: Basophils # 0.1 10^3/uL (0.0-0.1); Basophils % 0.7 %; Eosinophils # 0.3 10^3/uL (0.0-0.8); Eosinophils % 4.1 %; Hematocrit 39.4 % (37.0-47.0); Hemoglobin 12.5 g/dL (11.5-15.3); Lymphocytes # 2.2 10^3/uL (0.8-4.8); Lymphocytes % 29.3 %; Mean Corpuscular HGB Conc 31.7 g/dL (30.0-36.0); Mean Corpuscular Hemoglobin 28.3 pg (28.0-34.0); Mean Corpuscular Volume 89.1 fL (81-99); Mean Platelet Volume 9.4 fL (7.4-10.4); Monocytes # 0.4 10^3/uL (0.2-0.9); Monocytes % 4.7 %; Neutrophils # 4.52 10^3/uL (1.8-7.7); Neutrophils % 61.1 %; Nucleated Red Blood Cells % 0 %; Platelet Count 461 10^3/cmm (130-400); Red Blood Count 4.42 10^6/uL (4.1-5.3); Red Cell Distribution Width 15.2 % (12.1-15.1); White Blood Count 7.4 10^3/uL (4.0-10.0)
[2020-10-11 18:26] LABS: Bilirubin Urine Neg (Negative); Blood Urine Neg (Negative); Glucose Urine UA Norm (Normal); Ketones Urine Negative (Negative); Leukocyte Esterase Urine Negative (Negative); Nitrate Urine Negative (Negative); Protein Urine Neg (Negative); Specific Gravity, Urine 1.015 (1.005-1.030); Urine Appearance SL Hazy (CLEAR); Urine Color Yellow (Yellow); Urobilinogen Urine Norm (Negative); pH Urine 6.5 (5-7)
[2020-10-11 18:29] LABS: Bacteria Urine TRACE /hpf; RBC Urine 0-4 /hpf (0-2); WBC Urine 0-4 /hpf (0-5)
[2020-10-11 18:30] LABS: Add Urine Culture? No; HCG, Serum Qual Negative (Negative)
--- NOTE | 2020-10-11 18:35 | CTR_ITS ---
PROCEDURE INFORMATION: Exam: CT Abdomen And Pelvis Without Contrast Exam date and time: 10/11/2020 6:36 PM Age: 30 years old Clinical indication: Prior surgery; Surgery date: 6+ months; Surgery type: Gb, hyst; Patient HX: Gross hematuria; Additional info: Right flank pain TECHNIQUE: Imaging protocol: Computed tomography of the abdomen and pelvis without contrast. Radiation optimization: All CT scans at this facility use at least one of these dose optimization techniques: automated exposure control; mA and/or kV adjustment per patient size (includes targeted exams where dose is matched to clinical indication); or iterative reconstruction. COMPARISON: CT chest abd pel wo con 02/14/2020 3:17 AM RADIATION DOSE METRICS: Total DLP (mGy-cm): 1804.54 FINDINGS: Liver: Normal. No mass. Gallbladder and bile ducts: Normal. No calcified stones. No ductal dilation. Pancreas: Normal. No ductal dilation. Spleen: Normal. No splenomegaly. Adrenal glands: Normal. No mass. Kidneys and ureters: Normal. No hydronephrosis. Stomach and bowel: Unremarkable. No obstruction. No mucosal thickening. Appendix: The appendix is visible and is normal. Intraperitoneal space: Mild pelvic ascites. No free peritoneal air. Vasculature: Unremarkable. No abdominal aortic aneurysm. Lymph nodes: Multiple small retroperitoneal lymph nodes are most likely reactive. No enlarged lymph nodes. Urinary bladder: Unremarkable as visualized. Reproductive: The uterus is absent. Small ovaries. Bones/joints: Unremarkable. No acute fracture. Soft tissues: Unremarkable. CT/CT kidney stone [id number] IMPRESSION: 1. No acute abnormality identified in the abdomen or pelvis. 2. Mild nonspecific pelvic ascites. Radiation Dose CTDIVOL = (mGy): DLP = 1804.54 (mGy-cm)
[2020-10-11 18:40] LABS: Alanine Aminotransferase 40 U/L (0-33); Alkaline Phosphatase 71 IU/L (35-105); Anion Gap 13.1 (5-19); Aspartate Amino Transferase 27 U/L (0-32); Blood Urea Nitrogen 10 mg/dL (6-20); Calcium 9.3 mg/dL (8.5-10.5); Carbon Dioxide 28 mmol/L (22-29); Chloride 102 mmol/L (98-107); Globulin 3.3 g/dL (1.3-4.6); Glomerular Filtration Rate 118.1 mL/min (90-130); Glucose 86 mg/dL (65-115); Osmolality Calculated 286 mOsm/kg (285-295); Potassium 4.1 mmol/L (3.5-5.1); Sodium 139 mmol/L (136-145); Total Bilirubin 0.2 mg/dL (0.15-1.2); Total Protein 7.3 g/dL (6.6-8.7)
[2020-10-11] MEDS: ondansetron 2 mg/ML SDV 2 mL 4 MG IVP (19:13)
[2020-10-11 19:15] VITALS: RESP 16
[2020-10-11] MEDS: morphine 4 mg/mL SDV 1 mL 2 MG IVP (19:15)
[2020-10-11] MEDS: sodium chloride 0.9% 1,000 ML 999 ML IV (19:16)
[2020-10-11] MEDS: azithromycin 250 mg Tablet 1000 MG PO (19:58)
[2020-10-11 20:07] VITALS: PULSE 89; RESP 16; O2SAT 98
== END 2020-10-11 20:11 | disposition home or self-care (01) ==
PROVIDERS: Emergency Provider Physician Assistant
DX: Z20.2 Contact with and (suspected) exposure to infections with a predominantly sexual mode of transmission (principal); R10.30 Lower abdominal pain, unspecified; F17.210 Nicotine dependence, cigarettes, uncomplicated
CPT/HCPCS: 12345; 74176; 80053; 81000; 81001; 84703; 85025; 87491; 87591; 87661; 96365; 96375; 99283; 99284; J0696; J2270; J2405; J7030; Q0144

== ENCOUNTER 2025-07-10 21:53 | Emergency (ER) | payer OTHER, SELFPAY ==
[2025-07-10 21:56] VITALS: BP 121/72; PULSE 70; RESP 16; TEMP 36.6; O2SAT 100; BMI 45.7
--- OUTSIDE RECORDS SUMMARY | 2025-07-10 21:58 | XMS_ITS | Clinical Summary ---
Author Organization [facility] Address [address] Attn: Epic Prelude ADT CHRISTIE CRUZ [address] Care Team Providers Care Store Loss Prevention Manager Name Role Phone Unavailable Primary Care Provider Unavailabl e Allergies Active Allergy Reactions Criticality Noted Date Comments Codeine Anaphylaxis High 06/10/2011 Active Problems Problem Noted Date Diagnosed Date Tobacco abuse 12/31/2018 Cholelithiasis and cholecystitis without obstruc tion 06/10/2011 Immunizations Immunization Administration Dates Next Due (GARDASIL)(9-45 YRS) HUMAN PAPILLOMAVIRUS VACCINE, TYPES 6, 11, 16, 18, QUADRIVALENT (4VHPV), 3 DOSE, IM 04/03/2008 (M-M-R II/PRIORIX)(12 MO UP) MEASLES, MUMPS AND RUBELLA VIRUS VACCINE, 0.5 ML IM/SUBCUT 03/08/1995,01/10/1991 (TDVAX)(7 YRS UP) TETANUS AN D DIPHTHERIA TOXOIDS, ADSORBED (2 LF OF TETANUS TOXOID AND 2 LF OF DIPHTHERIA TOXOID), 0.5ML (PF), IM 05/03/2005,12/15/2004 Dt Dtp Dtap Vaccine 02/02/1995, 1,05/03/1990,02/09,1989 HIB, Unspecified Formulation 08/23/1991 Hepatitis B Vaccine 10/15/2002,04/16/2002,2001 IPV/OPV 01/10/1991, 0,02/09/1990,12/01 Family History Medical History Relation Name Comments Cancer Maternal Uncle Diabetes Neg Hx Heart Disease Neg Hx Relation Name Status Comments Maternal Uncle Social History Tobacco Use Types Packs/Day Years Used Date Smoking Tobacco: Every Day Cigarettes Smokeless Tobacco: Never Alcohol Use Standard Drinks/Week Comments No 0 (1 standard drink = 0.6 oz pur e alcohol) Comments Unknown Sex and Gender Information Value Date Recorded Sex Assigned at Not on file 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 Gender Identity Not on file Sexual Orientation Not on file Last Filed Vital Signs Vital Sign Reading Time Taken Comments Blood Pressure 119/70 02/26/2020 3:20 AM CDT Pulse 70 02/26/2020 3:20 AM CDT Temperature 36.5 C (97.7 F) 02/26/2020 3:20 AM CDT Respiratory Rate 18 02/26/2020 3:20 AM CDT Oxygen Saturation - - Inhaled Oxygen Concentration - - Weight 119.7 kg (264 lb) 02/26/2020 2:01 AM CDT Height 165.1 cm (5' 5 ) 02/26/2020 2:01 AM CDT Body Mass Index 43.93 02/26/2020 2:01 AM CDT Plan of Treatment Health Maintenance Due Date Last Done Comments DTAP/TDAP/TD VACCINES (6 - Tdap) 05/04/2005 05/03/2005, 12/15/2004, 02/02/1995, Additional history exists HPV VACCINES (2 - 3-dose series) 05/01/2008 04/03/20 08 HPV/Cotest (21-29) 2010 CERVICAL CANCER SCREENING 2019 HPV/Cotest (30-65) 2019 PAP SMEAR 2019 INFLUENZA VACCINE (#1) 2025 HEPATITIS B VACCINES Completed 10/15/2002, 04/16/2002, 03/13/2002
--- OUTSIDE RECORDS SUMMARY | 2025-07-10 21:58 | XMS_ITS | Encounter Summary ---
Author Organization [facility] Address [address] [place] [address] Care Team Providers Care Satellite Television Installer Name Role Phone Derick Doan MD Primary Care Provider [phone] Encounter Details Date Type Department Care Team (Latest Contact Info) Description 11/08/2004 Outpatient [facility] Medicine- [address] [place] [address] Madonna Chiu MD NO ADDRESS ON FILE VAGINITIS NOS (Primary Dx) Social History Tobacco Use Types Packs/Day Years Used Date Smoking Tobacco: Never Assessed Comments Unknown Sex and Gender Information Value Date Recorded Sex Assigned at Not on file 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
--- OUTSIDE RECORDS SUMMARY | 2025-07-10 21:58 | XMS_ITS | Encounter Summary ---
Author Organization [facility] Address [address] [place] [address] Care Team Providers Care Medical Assistant Float Name Role Phone Derick Doan MD Primary Care Provider [phone] Encounter Details Date Type Department Care Team (Latest Contact Info) Description 12/15/2004 Outpatient [facility] Medicine [address] [address] Madonna Chiu MD NO ADDRESS ON FILE MED EXAM NEC-ADMIN PURP (Primary Dx); VACCINE FOR TETANUS/DIPHTERIA Social History Tobacco Use Types Packs/Day Years Used Date Smoking Tobacco: Never Assessed Comments Unknown Sex and Gender Information Value Date Recorded Sex Assigned at Not on file 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
--- OUTSIDE RECORDS SUMMARY | 2025-07-10 21:58 | XMS_ITS | Clinical Summary ---
Author Organization [facility] Address [address] [place] [address] Phone Care Team Providers Care Air Conditioning Technician Name Role Phone Unavailable Primary Care Provider Unavailabl e Allergies Active Allergy Reactions Criticality Noted Date Comments Codeine Anaphylaxis High 06/10/2011 Medications No known medications Active Problems Problem Noted Date Diagnosed Date [...] Used Date Smoking Tobacco: Every Day Cigarettes 1 4 Smokeless Tobacco: Never Alcohol Use Standard Drinks/Week Comments No 0 (1 standard drink = 0.6 oz pur e alcohol) Comments No Sex and Gender Information Value Date Recorded Sex Assigned at Not on file 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
--- NOTE | 2025-07-10 22:06 | ED_ITS ---
HPI - Headache General: Chief Complaint: Headache Stated Complaint: Severe headache Lt eye and down cheek, vomiting Time Seen by Provider: 07/10/25 21:57 Source: patient Mode of arrival: ambulatory Limitations: no limitations History of Present Illness: 34-year-old female states she has a hist ory of migraine states she has had a migraine headache that is been going on for roughly 5 to 6 days. States its behind her left eye and through her head she does have photophobia and phonophobia its gradually worsened she denies any vision changes has had nausea and vomiting rates her headache a 9 out of 10 states this feels like her previous migraines Associated symptoms: Reports nausea and vomiting Related Data Previous Rx's ?Medication ?Instructions ?Recorded ondansetron 4 mg disintegrating 4 mg PO Q8H PRN nausea and 07/03/25 tablet vomiting #10 tabs Allergies Allergy/AdvReac Type Severity Reaction Status Date / Time codeine Allergy hives Verified 07/03/25 11:38 Review of Systems GI: Reports: nausea and vomiting Neuro: Reports: headache(s) PFSH ED PFSH: Medical History Morbid obesity with BMI of 40.0-44.9, adult URI (upper respiratory infection) Left otitis media External otitis of right ear Post traumatic stress disorder Cardiac murmur Surgical History History of partial hysterectomy History of tonsillectomy and adenoidectomy History of laparoscopic cholecystectomy History of tubal ligation Family History Other Cancer Diabetes Stroke Denies family history of CAD (coronary artery disease) Social History Smoking and tobacco/nicotine status: never used tobacco/nicotine Alcohol intake: current Alcohol intake frequency: holidays/special occasions only Alcohol type: beer and wine Substance/Drug Use: former Date of last use: 2018 Physical Exam Const: COMMON NORMALS: no acute distress, patient oriented x3 and healthy appearing HENMT: COMMON NORMALS: normocephalic and atraumatic HEAD & SCALP: normocephalic and atraumatic Eye: COMMON NORMALS: Equal, round and reactive pupils present and EOMs intact bilaterally PUPIL: Yes Equal, round and reactive pupils present Neck/C-Spine: COMMON NORMALS: full ROM and supple GENERAL: No Meningeal signs present Chest: COMMONS NORMALS: normal inspection of the chest Resp: COMMON NORMALS: normal respiratory effort Cardio: COMMON NORMALS: regular rate, regular rhythm and No murmurs present (Cardio) RATE: regular rate RHYTHM: regular rhythm Extremity: COMMON NORMALS: normal to inspection and full ROM Neuro: COMMON NORMALS: patient oriented x3, moves all extremities and no focal motor deficits Psych: COMMON NORMALS: mental status grossly normal, Normal thought process present and cooperative THOUGHT PROCESS: Normal thought process present Skin: COMMON NORMALS: no rashes or lesions noted and no wounds GENERAL SKIN EXAM: no rashes or lesions noted Course Vital Signs: Vital signs: Vital Signs Temperature 97.8 F 07/10/25 21:56 Pulse Rate 66 07/10/25 22:48 Respiratory Rate 20 H 07/10/25 22:48 Blood Pressure 128/105 07/10/25 22:48 Pulse Oximetry 100 07/10/25 22:48 Oxygen Delivery Me thod Room Air 07/10/25 22:48 MDM - Headache Medical Decision Making Patient presents with headaches likely migraine headache is like her previous migraine she has no signs of subarachnoid hemorrhage or meningitis pupils are reactive no signs of acute angle glaucoma she feels much better here after Reglan and Benadryl and Toradol she is stable for discharge she has to follow-up with PCP and return if worsening. Medical Records I reviewed the patient's medical records. No radiology studies performed this visit Discharge Plan Discharge Patient Disposition: Home Clinical Impression: Headache Condition: Stable Prescriptions: No Action ondansetron 4 mg tablet,disintegrating 4 mg PO Q8H PRN (Reason: nausea and vomiting) Qty: 10 0RF Discharge Orders: Discharge ED (Routine); Ordered 07/10/25 Ordered By: Petrona Jean Referrals: Susan Potter DO [Primary Care Provider, Family Practice] - 4-7 days Discharge Diet: Advance as tolerated Discharge Activity: Resume usual activity Patient Instructions: Migraine Headache (ED) Print Language: Kiswahili Coding Level of Care Code ED Senior Resident Care Director for Norman Dill
[2025-07-10 22:48] VITALS: BP 128/105; PULSE 66; RESP 20; O2SAT 100
[2025-07-10] MEDS: metoclopramide 5 mg/mL SDV 2 mL 10 MG IVP (23:04)
[2025-07-10] MEDS: diphenhydrAMINE 50 mg/mL SDV 1mL IVP (23:04)
[2025-07-10] MEDS: ondansetron 2 mg/ML SDV 2 mL 4 MG IVP (23:22)
[2025-07-10] MEDS: morphine 4 mg/mL SDV 1 mL IVP (23:22)
== END 2025-07-10 23:58 | disposition home or self-care (01) ==
PROVIDERS: Emergency Provider Emergency Medicine; PCP Family Medicine
DX: R51.9 Headache, unspecified (principal)
CPT/HCPCS: 96374; 96375; 99284; J1200; J2270; J2405; J2765

== ENCOUNTER → 2025-07-21 11:01 | Outpatient (BNVA) | payer OTHER, SELFPAY | PROVIDERS: PCP Family Medicine; Visit Provider Family Medicine | DX: N39.3 Stress incontinence (female) (male) (principal); R35.0 Frequency of micturition; R39.9 Unspecified symptoms and signs involving the genitourinary system | CPT/HCPCS: 81000; 87086 ==

== ENCOUNTER 2025-08-11 14:49 | Outpatient (CLI) | payer OTHER, SELFPAY ==
--- NOTE | 2025-08-11 15:15 | MR_ITS ---
WS: [id number] MRI HEAD WITHOUT CONTRAST TECHNIQUE: Sagittal T1, T2 axial, T2 axial FLAIR, axial and coronal T1 images, axial susceptibility weighted imaging, axial diffusion weighted images, and coronal T2 images were obtained. Unable to obtain IV access. Exam performed without gadolinium. CLINICAL INFORMATION: migraine COREY COMPARISON: CT head 2020 FINDINGS: Some images degraded due to motion. No evidence of restricted diffusion to suggest acute ischemia. No suspicious intracranial signal abnormalities. Normal vascular flow voids at the skull base. No extra-axial fluid collections. No evidence of mass or mass effect. Paranasal sinuses and mastoid air cells are well aerated. Tiny punctate focus of hemosiderin in the RIGHT cerebellum. No other suspicious findings. MR/MR head wo con* [id number] IMPRESSION: 1. No evidence of restricted diffusion to suggest acute ischemia. 2. No suspicious intracranial signal abnormalities. 3. No hydrocephalus. 4. Tiny punctate focus of hemosiderin RIGHT cerebellum. 5. No other suspicious findings.
== END 2025-08-11 14:50 | disposition home or self-care (01) ==
LOC: RAD 14:50
PROVIDERS: PCP Family Medicine; Visit Provider Family Medicine
DX: G43.909 Migraine, unspecified, not intractable, without status migrainosus (principal)
CPT/HCPCS: 70551